=== PATIENT | female | born 1980 | race Caucasian/White ===

== ENCOUNTER 2023-08-19 01:41 | Emergency (ER) | payer OTHER ==
[2023-08-19 01:59] VITALS: BP 107/65; PULSE 75; RESP 20; TEMP 97.4; BMI 19.5
[2023-08-19] MEDS ORDERED: ACETAMINOPHEN 500 MG TABLET (FP) PO ONE (02:11)
[2023-08-19] MEDS ORDERED: ACETAMINOPHEN 325 MG TABLET (FP) ONE (02:14)
[2023-08-19] MEDS ORDERED: AMOX TR/POT CLAV 875MG/125MG TABLETS (FP) PO ONE (02:56)
[2023-08-19] MEDS ORDERED: AMOX TR/POT CLAV 875MG/125MG TABLETS (FP) ONE (03:01)
== END 2023-08-19 03:07 | disposition home or self-care (01) ==
LOC: JER 01:41
PROC: 0H9FXZZ Drainage of Right Hand Skin, External Approach (ICD-10-PCS; principal; 2023-08-19)
DX: M79.644 Pain in right finger(s) (principal); R22.31 Localized swelling, mass and lump, right upper limb; L03.011 Cellulitis of right finger
CPT/HCPCS: 99283-25